=== PATIENT | male | born 1990 | race African-American/Black ===

== ENCOUNTER 2021-08-15 02:32 | Emergency (ER) | payer SELFPAY ==
[2021-08-15] MEDS ORDERED: cefTRIAXone\\ROCEPHIN 500 MG VIAL ONE (04:30)
[2021-08-15 04:59] LABS: Bilirubin Negative (Negative); Blood, Urine Negative (Negative); Clarity Turbid (Clear); Glucose, Urine (Dipstick) Normal (Negative); Ketone, Urine Negative (Negative); Leukocyte Negative Leu/uL (Negative); Nitrite Negative (Negative); Protein, Urine (Dipstick) Negative (Neg-Trace); Specific Gravity, Urine 1.018 (1.002-1.036); pH, Urine 6.5 (5.0-9.0)
[2021-08-15 12:28] LABS: Chlam.trachomatis by PCR,Urine Not Detected (NotDetected)
== END 2021-08-15 04:50 | disposition home or self-care (01) ==
LOC: ERS 02:32
DX: K02.9 Dental caries, unspecified (principal); Z20.2 Contact with and (suspected) exposure to infections with a predominantly sexual mode of transmission
CPT/HCPCS: 81003; 87491; 87591; 96372; 99281; J0696